=== PATIENT | female | born 1995 | race African-American/Black ===

== ENCOUNTER 2017-05-21 13:33 | Emergency (ER) | payer OTHER ==
[~2017-05-21] VITALS: Ht 160 cm; Wt 52.0 kg
[~2017-05-21 13:33] MED LIST: NAPR500 PO
[2017-05-21 13:34] VITALS: BP 114/69; PULSE 81; RESP 14; TEMP 98.4; O2SAT 98
--- NOTE | 2017-05-21 13:47 | PD ---
HPI . facial swelling x 1 day Chief Complaint: Edema Time Seen by Provider: 13:47 Travel History International Travel<30 days: No Contact w/Intl Traveler<30days: No Traveled to known affect area: No History of Present Illness HPI 21-year-old female here with complaints of left-sided cheek swelling for 1 day. Patient says that all of a sudden her left-side of her cheek started swelling and she went to her student health clinic and was told to come to the emergency department. Patient admits to some pain in the area. She denies any fever or chills. She does admit to using makeup, but not a lot of it. She denies any other issues. PFSH Past Medical History Diminished Hearing: No ?: Not LMP: 05/13 Social History Alcohol Use: No Tobacco Use: No Substance Use: No Allergies-Medications (Allergen,Severity, Reaction): Coded Allergies: No Known Allergies (Unverified , 05/21/17) Reported Meds & Prescriptions Reported Meds & Active Scripts Active Bactrim DS (Sulfamethoxazole-Trimethoprim) 800-160 Mg Tab 1 Tab PO BID Review of Systems General / Constitutional: No: Fever Eyes: No: Visual changes HENT: No: Headaches Cardiovascular: No: Chest Pain or Discomfort Respiratory: No: Shortness of Breath Gastrointestinal: No: Abdominal Pain Genitourinary: No: Dysuria Musculoskeletal: No: Pain Skin: Positive Other (cheek swelling), No Rash Neurologic: No: Weakness Psychiatric: No: Depression Endocrine: No: Polydipsia Hematologic/Lymphatic: No: Easy Bruising Physical Exam Narrative GENERAL: AAO x 3, no acute distress, Well-nourished, well-developed patient. SKIN: Warm and dry. No visible rashes or bruising. swelling to left side of cheek, infected papule vs. early abscess, no fluctuance no definitive fluid collection HEAD: Normocephalic and atraumatic. EYES: No scleral icterus. No injection or drainage. ENT: No nasal drainage noted. Mucous membranes pink. Airway patent. No oropharynx abn. NECK: Supple, trachea midline. No JVD. No lymphadenopathy CARDIOVASCULAR: Regular rate and rhythm without murmurs, gallops, or rubs. RESPIRATORY: Breath sounds equal bilaterally. No accessory muscle use. No rhonchi or rales. GASTROINTESTINAL: Visual inspection normal EXTREMITIES: No cyanosis or edema. BACK: No obvious deformity NEURO: Grossly intact PSYCH: AAO x 3, normal affect. Data Data Last Documented VS Vital Signs Date Time Temp Pulse Resp B/P (MAP) Pulse Ox O2 Delivery O2 Flow Rate FiO2 05/21/17 13:34 98.4 81 14 114/69 (84) 98 MDM Medical Decision Making Medical Screen Exam Complete: Yes Emergency Medical Condition: Yes Medical Record Reviewed: Yes Differential Diagnosis early abscess, facial cellulitis, folliculitis Narrative Course 21-year-old female here with what appears to be an early abscess. Unfortunately there is no fluid collection for incision and drainage. I recommend a course of antibiotics and keeping the area clean. I recommend warm compresses to see if there is a head formation. I advised her if there was, return to the ED for incision and drainage. Follow up with her school clinic. Patient verbalized understanding of instructions, questions were answered, and thanked me for their care. I advised them if their condition worsens, please return to the nearest emergency room for further care. Diagnosis Primary Impression: Facial cellulitis Patient Instructions: General Instructions Additional Instructions: [place] for worsening signs of infection which include fever, increased redness , increased warmth, purulent drainage, increased swelling or streaking. If any of these develop, please go to the nearest emergency room. Keep area clean with soap and water daily. Do not apply any makeup or any other products to your face. As we discussed if anything starts to worsen, go to the nearest emergency department. You can try to use warm compresses to the area to see if a head develops. If it does, you can come back to the emergency department to have it drained. Med/Other Pt SpecificInfo: Prescription(s) given Scripts Sulfamethoxazole-Trimethoprim (Bactrim DS) 800-160 Mg Tab 1 TAB PO BID for Infection, #20 TAB 0 Refills Prov: Benjamín Garcia MD 05/21/17 Disposition: 01 DISCHARGE HOME Condition: Stable Tracey Gonzalez May 21, 2017 13:47
[2017-05-21] MEDS ORDERED: BACT800T5 PO (13:52)
== END 2017-05-21 14:17 | disposition home or self-care (01) ==
LOC: NEPK 13:33
DX: L03.211 Cellulitis of face (principal)
CPT/HCPCS: 99283

== ENCOUNTER 2017-12-01 19:40 | Emergency (ER) | payer SELFPAY ==
[~2017-12-01 19:40] MED LIST changes: +BACT800T5 PO; -NAPR500 PO
[2017-12-01 19:59] VITALS: BP 102/57; PULSE 83; RESP 16; TEMP 98.4; O2SAT 100
--- NOTE | 2017-12-01 20:37 | RADRPT ---
EXAM DATE/TIME: 12/01/2017 20:19 [facility] COMPARISON: No previous studies available for comparison. INDICATIONS : Right ankle pain. Patient hurt it today in gymnastics. MEDICAL HISTORY : None. SURGICAL HISTORY : None. ENCOUNTER: Initial ACUITY: 1 day PAIN SCORE: 6/10 LOCATION: Right ankle. FINDINGS: Three view exam was performed of the right ankle. The bony structures are in normal alignment. No e vidence of fracture, dislocation, or soft tissue swelling. The ankle mortise is intact. No radiopaq ue foreign bodies are seen. Bony mineralization is normal. CONCLUSION: Negative radiographic examination. Miguel Godfrey MD on December 01, 2017 at 20:35 Board Certified Radiologist. This report was verified electronically.
--- NOTE | 2017-12-01 21:32 | PD ---
HPI Chief Complaint: Musculoskeletal Complaint Time Seen by Provider: 21:24 Travel History International Travel<30 days: No Contact w/Intl Traveler<30days: No Traveled to known affect area: No History of Present Illness HPI 22-year-old female presents for evaluation of right ankle pain. She reports a 5 days ago she was dancing and she did a cartwheel when she twisted her right ankle. Since then she has had right ankle pain which is aching, constant, worse with walking. Symptoms persist which prompted evaluation today. She has no other complaints at this time. [facility] Past Medical History Diminished Hearing: No ?: Not LMP: 11/30/17 Social History Alcohol Use: No Tobacco Use: No Substance Use: No Allergies-Medications (Allergen,Severity, Reaction): Coded Allergies: No Known Allergies (Unverified Adverse Reaction, Unknown, 12/01/17) Reported Meds & Prescriptions Reported Meds & Active Scripts Active Bactrim DS (Sulfamethoxazole-Trimethoprim) 800-160 Mg Tab 1 Tab PO BID Review of Systems Musculoskeletal: Positive: Pain, No: Limited ROM Skin: Positive Other (Denies open wounds) Physical Exam Narrative GENERAL: Well-developed well-nourished female no acute distress SKIN: Warm and dry. HEAD: Atraumatic. Normocephalic. EYES: Pupils equal and round. No scleral icterus. No injection or drainage. ENT: No nasal bleeding or discharge. Mucous membranes pink and moist. NECK: Trachea midline. No JVD. CARDIOVASCULAR: Regular rate and rhythm. No murmur appreciated. RESPIRATORY: No accessory muscle use. Clear to auscultation. Breath sounds equal bilaterally. MUSCULOSKELETAL: No obvious deformities. There is tenderness to palpation to the lateral right ankle. There is pain with dorsi and plantar flexion of the right ankle. The Achilles tendon is intact and nontender. There is no tenderness to palpation to the dorsal right foot. There is no calf tenderness. 2+ dorsalis pedis pulse. NEUROLOGICAL: Awake and alert. No obvious cranial nerve deficits. Motor grossly within normal limits. Normal speech. Data Data Last Documented VS Vital Signs Date Time Temp Pulse Resp B/P (MAP) Pulse Ox O2 Delivery O2 Flow Rate FiO2 12/01/17 19:59 98.4 83 16 102/57 (72) 100 Orders Orders Ankle, Complete ([id number]) (12/01/17 ) Ed Discharge Order (12/01/17 21:29) Splint Or Brace Apply/Monitor (12/01/17 21:29) [facility] Medical Decision Making Medical Screen Exam Complete: Yes Emergency Medical Condition: Yes Medical Record Reviewed: Yes Differential Diagnosis Lateral ankle sprain, avulsion fracture, fibular fracture, tibia fracture, Lisfranc injury Narrative Course X-ray imaging of the right ankle was obtained revealing no acute abnormalities. The patient appears to have a mild right ankle sprain. She will be discharged with ankle stirrup splint and crutches. Diagnosis Primary Impression: Right ankle sprain Additional Instructions: Rest, avoid activities that exacerbate her pain. Crutches as needed. Follow- up with primary care physician in 2 weeks. Return for any emergent medical conditions. Med/Other Pt SpecificInfo: No Change to Meds Disposition: 01 DISCHARGE HOME Condition: Stable Klever Ramirez Dec 01, 2017 21:32
== END 2017-12-01 21:57 | disposition home or self-care (01) ==
LOC: NEPK 19:40
DX: S93.401A Sprain of unspecified ligament of right ankle, initial encounter (principal); X50.9XXA Other and unspecified overexertion or strenuous movements or postures, initial encounter; Y93.41 Activity, dancing
CPT/HCPCS: 73610; 99283; E0113; L1906